=== PATIENT | male | born 2000 | race Caucasian/White ===

== ENCOUNTER 2018-12-07 22:30 | Emergency (ER) | payer SELFPAY ==
[~2018-12-07] VITALS: Ht 177.8 cm; Wt 95.3 kg
[2018-12-07] MEDS ORDERED: RT-ALBUINH INH (23:18)
--- NOTE | 2018-12-07 23:18 | ED Cough/URI ---
General Chief Complaint: Cough/Cold/Flu Symptoms Stated Complaint: FLU LIKE SYMPTOMS Nursing Triage Note: Patient advises headache, vomitting and cough since sunday that has become progressively worse. Pt. temp 98.0 at arrival. Sepsis Screen: No Definite Risk Source: patient Exam Limitations: no limitations History of Present Illness Date Seen by Provider: Dec 07, 2018 Time Seen by Provider: 23:06 Initial Comments Patient presents to ER by private conveyance with chief complaint of cough, nonproductive, fevers and chills subjectively all week. He is not getting any better. He is not using Tylenol or Motrin. He does not want anything for his discomfort now. He has a headache is global. He has a history of asthma years ago but does not take any albuterol or inhaled corticosteroids. Allergies and Home Medications Allergies Coded Allergies: shrimp (Verified Allergy, Unknown, throat scratchy, 12/07/18) Home Medications Albuterol Sulfate 1 Puff Puff, 2 PUFF INH Q4H PRN for WHEEZING 1 PUFF = 90 MCG Prescribed by: CHERELLE MCNULTY on 12/07/18 [id number] Patient Home Medication List Home Medication List Reviewed: Yes Review of Systems Review of Systems Constitutional: chills, fever (subjective), malaise EENTM: No ear discharge, No hearing loss, No ear pain Respiratory: cough; No phlegm, No short of breath; wheezing Cardiovascular: No chest pain, No edema Gastrointestinal: No abdominal pain, No nausea, No vomiting Genitourinary: No discharge, No dysuria Musculoskeletal: No back pain, No joint pain Past Snhuggp-[id number]-[id number] Hx Patient Social History Alcohol Use: Denies Use Recreational Drug Use: No Smoking Status: Current Everyday Smoker Recent Foreign Travel: No Contact w/Someone Who Travel: No Recent Infectious Disease Expo: No Recent Hopitalizations: No Seasonal Allergies Seasonal Allergies: No Past Medical History Surgeries: No Respiratory: No Cardiac: No Neurological: No Genitourinary: No Gastrointestinal: No Musculoskeletal: No Endocrine: No HEENT: No Cancer: No Psychosocial: No Integumentary: No Blood Disorders: No Physical Exam Vital Signs - First Documented 12/07/18 22:58 Temp 98.0 Pulse 71 Resp 16 B/P (MAP) 144/95 (111) Pulse Ox 98 O2 Delivery Room Air Capillary Refill : Less Than 3 Seconds Height: 5'10.00" Weight: 210lbs. oz. 95.241021dy; BMI Method:Estimated General Appearance: WD/WN, mild distress Eyes: Bilateral Eye Normal Inspection, Bilateral Eye PERRL, Bilateral Eye EOMI HEENT: PERRL/EOMI, normal ENT inspection, TMs normal, pharynx normal Neck: non-tender, full range of motion, supple, normal inspection Respiratory: chest non-tender, lungs clear, normal breath sounds, no respiratory distress, no accessory muscle use Cardiovascular: normal peripheral pulses, regular rate, rhythm Gastrointestinal: normal bowel sounds, non tender, soft Progress/Results/Core Measures Suspected Sepsis Recent Fever Within 48 Hours: No Infection Criteria Present: None New/Unexplained Altered Menta: No Sepsis Screen: No Definite Risk SIRS Temperature:98.0 Pulse: 71 Respiratory Rate: 16 Blood Pressure 144 /95 Mean: 111 Results/Orders Micro Results Microbiology 12/07/18 Influenza Types A,B Antigen (MARIA ALEJANDRA) - Final, Complete My Orders Orders - CHERELLE MCNULTY Influenza A And B Antigens (12/07/18 22:35) Vital Signs/I&O 12/07/18 22:58 Temp 98.0 Pulse 71 Resp 16 B/P (MAP) 144/95 (111) Pulse Ox 98 O2 Delivery Room Air Capillary Refill : Less Than 3 Seconds Blood Pressure Mean: 111 Departure Impression Primary Impression: Upper respiratory infection Qualified Codes: J06.9 - Acute upper respiratory infection, unspecified Disposition: 01 HOME, SELF-CARE Condition: Stable Departure-Patient Inst. Decision time for Depature: 23:53 Referrals: NO,LOCAL PHYSICIAN (PCP/Family) Primary Care Physician Patient Instructions: Cough, Runny Nose, and the Common Cold (DC) Add. Discharge Instructions: Use a humidifier and vapor rubs as well as loss of sleep. Tylenol and Motrin will be helpful for the body aches, fatigue, misery or fever. Use your albuterol inhaler as necessary if you have wheezing, incessant coughing or shortness of breath. All discharge instructions reviewed with patient and/or family. Voiced understanding. Scripts Albuterol Sulfate (VENTOLIN HFA) 1 Puff Puff 2 PUFF INH Q4H PRN for WHEEZING, #1 EACH 0 Refills 1 PUFF = 90 MCG Prov: CHERELLE MCNULTY 12/07/18 Work/School Note: Work Release Form Date Seen in the Emergency Department: Dec 07, 2018 Return to Work: Dec 10, 2018 Restrictions: No Restrictions CHERELLE MCNULTY Dec 07, 2018 23:18
[2018-12-08 00:06] VITALS: BP 128/89
--- OUTSIDE RECORDS SUMMARY | 2018-12-08 14:37 | XMS REPORT ---
Author Author Bruce Thomson [facility] Address [address] [place], [place] [id number] Care Team Providers Care Pediatric Licensed Practical Nurse Name Role Phone Bruce Thomson PCP Unavailable Allergies and Adverse Reactions Name Reaction Notes Shell Fish (shrimp, crayfish, lobster, crab) lips numbness Plan of Treatment Not available. Medications Active Name Start Date Estimated Completion Date SIG Comments [place] 3 oral capsule 350-400 mg take 4 capsules by oral route daily melatonin oral tablet 3 mg take 1 tablet by oral route daily oxcarbazepine oral tablet 150 mg 06/16/2014 take 1/2 tablet at bedtime albuterol sulfate oral 90 mcg HFA 06/16/2014 2 puffs every 4 to 6hr prn Zithromax Z-Pino Oral Tablet 250 mg 11/04/2014 take 2 tablets (500 mg) by oral route once daily for 1 day then 1 tablet (250 mg) by oral route once daily for 4 days Vyvanse oral capsule 50 mg 02/12/2015 03/14/2015 take 1 capsule (50 mg) by oral route once daily in the morning for 30 days Claritin oral tablet 10 mg take 1 tablet (10 mg) by oral route once daily Discontinued Name Start Date Discontinued Date SIG Comments Leticia Allergy oral tablet 180 mg 02/22/2015 02/23/2015 take 1 tablet (180 mg ) by oral route once daily for 30 days Problem List Description Status Onset ADD Active Asthma Active Mood disorder Active Vital Signs Date Time BP-Sys(mm[Hg] BP-Ann(mm[Hg]) HR(bpm) RR(rpm) Temp WT HT HC BMI BSA BMI Percentile O2 Sat(%) 02/22/2015 10:19:00 AM 110 mmHg 78 mmHg 60 bpm 18 rpm 97.1 F 255 lbs 67.5 in 39.35 kg/m2 2.35 m2 99.6 % 11/23/2014 9:03:00 AM 110 mmHg 78 mmHg 68 bpm 18 rpm 96.6 F 256 lbs 67.5 in 39.5031 kg/m 2.3516 m 99.6 % 11/04/2014 8:44:00 AM 118 mmHg 82 mmHg 78 bpm 18 rpm 97.7 F 250 lbs 67.5 in 38.58 kg/m2 2.32 m2 99.5 % 09/02/2014 9:14:00 AM 120 mmHg 80 mmHg 60 bpm 18 rpm 98.4 F 252 lbs 67.5 in 38.8858 kg/m 2.3332 m 99.6 % 07/28/2014 10:12:00 AM 110 mmHg 80 mmHg 72 bpm 16 rpm 96.4 F 256 lbs 67.5 in 39.50 kg/m2 2.35 m2 99.6 % 97 % 07/03/2014 4:20:00 PM 120 mmHg 72 mmHg 110 bpm 16 rpm 98 F 252.375 lbs 67.5 in 38.9437 kg/m 2.3349 m 99.6 % 98 % 06/16/2014 8:32:00 AM 112 mmHg 76 mmHg 78 bpm 18 rpm 97.4 F 249 lbs 67.5 in 38.42 kg/m2 2.32 m2 99.5 % Social History Name Description Comments lives with family member Tobacco uses the vapor cigarettes History of Procedures Date Ordered Description Order Status 07/27/2014 12:00 AM IMMUNIZATION ADMIN Reviewed Results Summary Not available. History Of Immunizations Not available. History of Past Illness Name Date of Onset Comments ADD Mood disorder Asthma Asthma Jun 16 2014 8:51AM Mood disorder Jun 16 2014 8:51AM Attention deficit Jun 16 2014 8:51AM Well Child Examination Jul 03 2014 4:26PM Gardsil (HPV) Jul 27 2014 5:00PM Meningococcal Jul 27 2014 5:00PM ADD (attention deficit disorder) Sep 02 2014 9:19AM Otitis Media, Acute Nov 04 2014 8:47AM Attention deficit disorder (ADD) Nov 23 2014 9:06AM ADD Feb 22 2015 10:24AM Payers Insurance Name Company Name Plan Name Plan Number Policy Number Policy Group Number [facility] Date [facility] [place] State [place] [facility] [place] State Plan [id number] N/A History of Encounters Visit Date Visit Type Provider 02/22/2015 Office visit Bruce Thomson MD 11/23/2014 Office visit Bruce Thomson MD 11/04/2014 Office visit Bruce Thomson MD 09/02/2014 Office visit Bruce Thomson MD 07/28/2014 Voided Eugene Ruvalcaba APRN 07/27/2014 Nurse visit Bruce Thomson MD 07/03/2014 Office visit Eugene Ruvalcaba APRN 06/16/2014 Office visit Bruce Thomson MD
--- OUTSIDE RECORDS SUMMARY | 2018-12-08 14:37 | XMS REPORT ---
Author Author Bruce Thomson [facility] Address [address] [place], [place] [id number] Care Team Providers Care Sludge Filtration Operator Name Role Phone Bruce Thomson PCP Unavailable Bruce Thomson PreferredProvider Unavailable Allergies and Adverse Reactions Name Reaction Notes Shell Fish (shrimp, crayfish, lobster, crab) lips numbness Plan of Treatment Planned Activity Comments Planned Date Planned Time Plan/Goal [facility] Gardasil (HPV Vaccine) 07/27/2014 12:00 AM Menactra,[facility] 07/27/2014 12:00 AM Medications Active Name Start Date Estimated Completion Date SIG Comments [place] 3 oral capsule 350-400 mg take 4 capsules by oral route daily melatonin oral tablet 3 mg take 1 tablet by oral route daily albuterol sulfate oral 90 mcg HFA 06/16/2014 2 puffs every 4 to 6hr prn Claritin oral tablet 10 mg take 1 tablet (10 mg) by oral route once daily Name Start Date Expiration Date SIG Comments oxcarbazepine oral tablet 150 mg 04/01/2015 07/30/2015 take 1 tablet by oral route once a day (at bedtime) for 30 days Vyvanse oral capsule 60 mg 04/28/2015 05/28/2015 take 1 capsule (60 mg) by oral route once daily in the morning for 30 days Discontinued Name Start Date Discontinued Date SIG Comments Zithromax Z-Pino Oral Tablet 250 mg 11/04/2014 04/01/2015 take 2 tablets (500 mg) by oral route once daily for 1 day then 1 tablet (250 mg) by oral route once daily for 4 days Leticia Allergy oral tablet 180 mg 02/22/2015 02/23/2015 take 1 tablet (180 mg ) by oral route once daily for 30 days Problem List Description Status Onset ADD Active Asthma Active Mood disorder Active Vital Signs Date Time BP-Sys(mm[Hg] BP-Ann(mm[Hg]) HR(bpm) RR(rpm) Temp WT HT HC BMI BSA BMI Percentile O2 Sat(%) 08/02/2017 10:48:00 AM 124 mmHg 88 mmHg 78 bpm 14 rpm 198.5 lbs 100 % 04/01/2015 10:16:00 AM 112 mmHg 74 mmHg 80 bpm 18 rpm 98.6 F 251 lbs 67.5 in 38.7315 kg/m 2.3286 m 99.6 % 02/22/2015 10:19:00 AM 110 mmHg 78 mmHg [...] 2014 9:06AM ADD Feb 22 2015 10:24AM ADD Apr 01 2015 10:23AM Mood disorder Apr 01 2015 10:23AM Payers Insurance Name Company Name Plan Name Plan Number Policy Number Policy Group Number Start Date BCBS [facility] [id number] N/A [employer] - [facility] - [place] State Plan [facility] [place] State Plan [id number] N/A History of Encounters Visit Date Visit Type Provider 08/02/2017 Office visit Bruce Thomson MD 04/01/2015 Office visit Bruce Thomson MD 02/22/2015 Office visit Bruce Thomson MD 11/23/2014 Office visit Bruce Thomson MD 11/04/2014 Office visit Bruce Thomson MD 09/02/2014 Office visit Bruce Thomson MD 07/28/2014 Voided Eugene Ruvalcaba APRN 07/27/2014 Nurse visit Bruce Thomson MD 07/03/2014 Office visit Eugene Ruvalcaba APRN 06/16/2014 Office visit Bruce Thomson MD
--- OUTSIDE RECORDS SUMMARY | 2018-12-08 14:38 | XMS REPORT ---
Author Author Bruce Thomson [facility] Address [address] [place], [place] [id number] Care Team Providers Care Agricultural Equipment Sales Engineer Name Role Phone Bruce Thomson PCP Unavailable Allergies and Adverse Reactions Name Reaction Notes Shell Fish (shrimp, crayfish, lobster, crab) lips numbness Plan of Treatment Not available. Medications Active Name Start Date Estimated Completion Date SIG Comments [place] 3 oral capsule 350-400 mg take 4 capsules by oral route daily melatonin oral tablet 3 mg take 1 tablet by oral route daily albuterol sulfate oral 90 mcg HFA 06/16/2014 2 puffs every 4 to 6hr prn Claritin oral tablet 10 mg take 1 tablet (10 mg) by oral route once daily oxcarbazepine oral tablet 150 mg 04/01/2015 07/30/2015 take 1 tablet by oral route once a day (at bedtime) for 30 days Vyvanse oral capsule 60 mg 04/01/2015 05/01/2015 take 1 capsule (60 mg) by oral [...] HC BMI BSA BMI Percentile O2 Sat(%) 04/01/2015 10:16:00 AM 112 mmHg 74 mmHg 80 bpm 18 rpm 98.6 F 251 lbs 67.5 in 38.73 kg/m2 2.33 m2 99.6 % 02/22/2015 10:19:00 AM 110 mmHg 78 mmHg 60 bpm 18 rpm 97.1 F 255 lbs 67.5 in 39.3488 kg/m 2.347 m 99.6 % 11/23/2014 9:03:00 AM 110 mmHg 78 mmHg 68 bpm 18 rpm 96.6 F 256 lbs 67.5 in 39.50 kg/m2 2.35 m2 99.6 % 11/04/2014 8:44:00 AM 118 mmHg 82 mmHg 78 bpm 18 rpm 97.7 F 250 lbs 67.5 in 38.5772 kg/m 2.3239 m 99.5 % 09/02/2014 9:14:00 AM 120 mmHg 80 mmHg 60 bpm 18 rpm 98.4 F 252 lbs 67.5 in 38.89 kg/m2 2.33 m2 99.6 % 07/28/2014 10:12:00 AM 110 mmHg 80 mmHg 72 bpm 16 rpm 96.4 F 256 lbs 67.5 in 39.5031 kg/m 2.3516 m 99.6 % 97 % 07/03/2014 4:20:00 PM 120 mmHg 72 mmHg 110 bpm 16 rpm 98 F 252.375 lbs 67.5 in 38.94 kg/m2 2.33 m2 99.6 % 98 % 06/16/2014 8:32:00 AM 112 mmHg 76 mmHg 78 bpm 18 rpm 97.4 F 249 lbs 67.5 in 38.4229 kg/m 2.3193 m 99.5 % Social History Name Description Comments [...] Policy Number Policy Group Number Start Date [employer] [facility] [place] [employer] [place] [facility] [place] [id number] N/A History of Encounters Visit Date Visit Type Provider 04/01/2015 Office visit Bruce Thomson MD 02/22/2015 Office visit Bruce Thomson MD 11/23/2014 Office visit Bruce Thomson MD 11/04/2014 Office visit Bruce Thomson MD 09/02/2014 Office visit Bruce Thomson MD 07/28/2014 Voided Eugene Ruvalcaba APRN 07/27/2014 Nurse visit Bruce Thomson MD 07/03/2014 Office visit Eugene Ruvalcaba APRN 06/16/2014 Office visit Bruce Thomson MD
--- OUTSIDE RECORDS SUMMARY | 2018-12-08 14:38 | XMS REPORT ---
Author Author Bruce Thomson [facility] Address [address] [place], [place] [id number] Care Team Providers Care Insulating Machine Operator Name Role Phone Bruce Thomson PCP Unavailable Allergies and Adverse Reactions Name Reaction Notes Shell Fish (shrimp, crayfish, lobster, crab) lips numbness Plan of Treatment Not available. Medications Active Name Start Date Estimated Completion Date SIG Comments [place] 3 oral capsule 350-400 mg take 4 [...] oral route once daily for 4 days Claritin oral tablet 10 mg take 1 tablet (10 mg) by oral route once daily Vyvanse oral capsule 50 mg 03/16/2015 04/15/2015 take 1 capsule (50 mg) by oral [...] Policy Number Policy Group Number [facility] [place] State [place] [facility] [place] State Plan [id number] N/A History of Encounters Visit Date Visit Type Provider 02/22/2015 Office visit Bruce Thomson MD 11/23/2014 Office visit Bruce Thomson MD 11/04/2014 Office visit Bruce Thomson MD 09/02/2014 Office visit Bruce Thomson MD 07/28/2014 Voided Eugene Ruvalcaba APRN 07/27/2014 Nurse visit Bruce Thomson MD 07/03/2014 Office visit Eugene Ruvalcaba APRN 06/16/2014 Office visit Bruce Thomson MD
--- OUTSIDE RECORDS SUMMARY | 2018-12-08 14:38 | XMS REPORT ---
Author Author Bruce Thomson [facility] Address [address] [place], [place] [address] Care Team Providers Care Telegraph Installer Name Role Phone Bruce Thomson PCP Unavailable Bruce Thomson PreferredProvider Unavailable Allergies and Adverse Reactions Name Reaction Notes Shell Fish (shrimp, crayfish, lobster, crab) lips numbness Plan of Treatment Planned Activity Comments Planned Date Planned Time Plan/Goal [facility] Gardasil (HPV Vaccine) 07/27/2014 12:00 AM [facility]actra,[facility] 07/27/2014 12:00 AM Medications Active Name Start Date Estimated Completion Date SIG Comments [place] 3 oral capsule 350-400 mg take 4 capsules by oral route daily melatonin oral tablet 3 mg take 1 tablet by oral route daily albuterol sulfate oral 90 mcg HFA 06/16/2014 2 puffs every 4 to 6hr prn Claritin oral tablet 10 mg take 1 tablet (10 mg) by oral route once daily Vyvanse 40 mg oral capsule 08/02/2017 09/01/2017 take 1 capsule (40 mg) by oral route once daily in the morning for 30 days amoxicillin 500 mg oral capsule 08/02/2017 take 2 capsules by oral route 3 times a day for 5 days Medrol (Pino) 4 mg oral tablets,dose pack 08/02/2017 take as directed for 6 days Name Start Date Expiration Date SIG Comments [...] 10:23AM Mood disorder Apr 01 2015 10:23AM ADD (attention deficit disorder) Aug 02 2017 10:50AM Sinusitis Aug 02 2017 10:50AM Payers Insurance Name Company Name Plan Name Plan Number Policy Number Policy Group Number [facility] Date [id number] N/A [employer] - [facility] [place] [facility] [place] [id number] N/A History of Encounters Visit Date Visit Type Provider 08/02/2017 Office visit Bruce Thomson MD 04/01/2015 Office visit Bruce Thomson MD 02/22/2015 Office visit Bruce Thomson MD 11/23/2014 Office visit Bruce hTomson MD 11/04/2014 Office visit Bruce Thomson MD 09/02/2014 Office visit Bruce Thomson MD 07/28/2014 Voided Eugene Ruvalcaba APRN 07/27/2014 Nurse visit Bruce Thomson MD 07/03/2014 Office visit Eugene Ruvalcaba APRN 06/16/2014 Office visit Bruce Thomson MD
--- OUTSIDE RECORDS SUMMARY | 2018-12-08 14:38 | XMS REPORT | Continuity of Care Document ---
Author Author [facility] Organization [facility] Address Unknown Phone Unavailable Allergies There is no data. Medications There is no data. Problems There is no data. Procedures There is no data. Results There is no data. Encounters ACCT No. Visit Date/Time Discharge Status Pt. Type Provider Facility Loc./Unit Complaint [id number] 08/02/2017 11:41:18 08/02/2017 23:59:59 Bruce Figueroa [id number] 05/17/2015 22:03:15 05/17/2015 23:59:59 Bruce Figueroa [id number] 05/17/2015 21:29:57 05/17/2015 23:59:59 Bruce Figueroa [id number] 11/23/2014 09:53:28 11/23/2014 23:59:59 Bruce Figueroa [id number] 11/04/2014 09:26:20 11/04/2014 23:59:59 [facility] Outpatient Bruce Thomson [id number] 09/02/2014 10:02:44 09/02/2014 23:59:59 [facility] Outpatient Bruce Thomson [id number] 07/28/2014 11:06:41 07/28/2014 23:59:59 Eugene Abdullahi [id number] 07/27/2014 17:41:00 07/27/2014 23:59:59 Bruce Figueroa [id number] 07/03/2014 17:19:11 07/03/2014 23:59:59 Eugene Abdullahi [id number] 06/16/2014 09:18:37 06/16/2014 23:59:59 Bruce Figueroa
== END 2018-12-08 00:06 | disposition home or self-care (01) ==
LOC: ER 22:32
DX: J06.9 Acute upper respiratory infection, unspecified (principal); J45.909 Unspecified asthma, uncomplicated; F17.200 Nicotine dependence, unspecified, uncomplicated; Z79.51 Long term (current) use of inhaled steroids
CPT/HCPCS: 87804